=== PATIENT | male | born 1980 | race Caucasian/White ===

== ENCOUNTER 2019-01-25 15:27 | Emergency (ER) | payer BC ==
[2019-01-25 15:33] VITALS: BP 179/102; PULSE 85; RESP 18; TEMP 98.1
[2019-01-25] MEDS ORDERED: LIDOCAINE 1% INJ 10MG/ML (20 ML MDV) SQ ONE (15:50)
[2019-01-25] MEDS ORDERED: DIPH,PERTUS(ACELL)TETVAC-LF 0.5 ML VIAL IM ONE (15:50)
[2019-01-25] MEDS ORDERED: IBUPROFEN 600 MG TAB PO STA (15:50)
--- NOTE | 2019-01-25 16:48 | XR ---
EXAMINATION TYPE: XR hand complete RT DATE OF EXAM: 01/25/2019 COMPARISON: NONE HISTORY: 38-year-old female with pain. Puncture wound to the palm. TECHNIQUE: 3 views FINDINGS: No acute fracture, subluxation, or dislocation. No retained radiopaque foreign body seen. IMPRESSION: No acute osseous abnormality seen. No retained radiopaque foreign body material identified.
--- NOTE | 2019-01-25 17:22 | ED ---
Wound/Laceration HPI - General Chief Complaint: Wound/Laceration Stated Complaint: Hand puncture Time Seen by Provider: 01/25/19 15:39 Source: patient Mode of arrival: ambulatory Limitations: no limitations - History of Present Illness Initial Comments: Patient is a 38-year-old male presenting to emergency Department with complaints of puncture wounds to his right hand that happened prior to arrival. Patient states he was helping put some kiera down and he set his right hand down onto a floor board which had 2 screws sticking straight up. Patient did put all his weight down onto his right palm. Patient is able to move his right hand although painful. Bleeding is controlled at this time. Patient is unaware of his last tetanus vaccine. Patient denies any fever, chills. No other complaints at this time. Upon arrival, vital signs are stable, afebrile. - Related Data Allergies Allergy/AdvReac Type Severity Reaction Status Date / Time No Known Allergies Allergy Verified 01/25/19 15:33 Review of Systems ROS Statement: Those systems with pertinent positive or pertinent negative responses have been documented in the HPI. ROS Other: All systems not noted in ROS Statement are negative. Past Medical History Past Medical History: Hypertension History of Any Multi-Drug Resistant Organisms: None Reported Additional Past Surgical History / Comment(s): colon resection Past Psychological History: No Psychological Hx Reported Smoking Status: Never smoker Past Alcohol Use History: None Reported Past Drug Use History: None Reported General Exam - General Exam Comments Initial Comments: GENERAL: Well-appearing, well-nourished and in no acute distress. HEAD: Atraumatic, normocephalic. EYES: Pupils equal round and reactive to light, extraocular movements intact, sclera anicteric, conjunctiva are normal. ENT: TMs normal, nares patent, oropharynx clear without exudates. Moist mucous membranes. NECK: Normal range of motion, supple without lymphadenopathy or JVD. LUNGS: Breath sounds clear to auscultation bilaterally and equal. No wheezes rales or rhonchi. HEART: Regular rate and rhythm without murmurs, rubs or gallops. ABDOMEN: Soft, nontender, normoactive bowel sounds. No guarding, no rebound. No masses appreciated. : Deferred EXTREMITIES: Normal range of motion, no pitting or edema. No clubbing or cyanosis. Patient has full range of motion of his right hand and fingers. NEUROLOGICAL: Cranial nerves II through XII grossly intact. Normal speech, normal gait. PSYCH: Normal mood, normal affect. SKIN: Warm, Dry, normal turgor. There are 2 puncture wounds on the right palm, one just proximal to right thumb and the other puncture wound in the middle of the right palm. Bleeding is controlled at this time. Limitations: no limitations Course Vital Signs 01/25/19 15:29 Temperature 98.1 F Pulse Rate 85 Respiratory 18 Rate Blood Pressure 179/102 O2 Sat by Pulse 95 Oximetry Procedures - Laceration Laceration #1 Consent Obtained: verbal consent Indication: laceration Site: hand (Right hand, claire aspect, near base of thumb.) Size (cm): 0 (0.5) Description: irregular Depth: simple, single layer Anesthetic Used: lidocaine 1% Anesthesia Technique: local infiltration Amount (mls): 1 Pre-repair: irrigated extensively Type of Sutures: nylon Size of Sutures: 5-0 Number of Sutures: 1 Technique: simple, interrupted Patient Tolerated Procedure: well Laceration #2 Consent Obtained: verbal consent Indication: laceration Site: hand (Right hand, palmar aspect, middle of the palm) Size (cm): 1 Description: linear Depth: simple, single layer Anesthetic Used: lidocaine 1% Anesthesia Technique: local infiltration Amount (mls): 2 Pre-repair: irrigated extensively Type of Sutures: nylon Size of Sutures: 5-0 Number of Sutures: 3 Technique: simple, interrupted Patient Tolerated Procedure: well Medical Decision Making - Medical Decision Making Patient is a 38-year-old male presenting with 2 puncture wounds to his right palm prior to arrival. Patient excellently put all his weight down while getting up off the floor onto a piece of board that had 2 screws poking out. Patient is unaware of his last tetanus vaccine. On exam patient has a 0.5cm, small puncture wound to the base of the right thumb in the thenar eminence. Patient also has a second puncture wound, 1cm, more in the middle of the palm. X-ray of the right hand revealed no acute fractures dislocations. Patient has full range of motion of all 5 fingers although thumb range of motion is painful. Patient's hand was soaked in Betadine solution. Wounds were closed with 5-0 sutures. One suture at the base of the thumb, 3 sutures in the middle of the right palm. Bleeding is controlled at this time. Patient tolerated procedure well. Patient's tetanus vaccine was updated today. Sutures need to be removed in 10-12 days. Return parameters were discussed with the patient he verbalizes understanding. Patient stable for discharge at this time. Case discussed with Dr. Willams. Disposition Clinical Impression: Laceration of right hand Disposition: HOME SELF-CARE Condition: Stable Instructions (If sedation given, give patient instructions): Care For Your Stitches (ED) Additional Instructions: Please return to the Emergency Department if symptoms worsen or any other concerns. Sutures need to be removed in 10-12 days. Is patient prescribed a controlled substance at d/c from ED?: No Referrals: Jesus Thomas DO [Primary Care Provider] - 1-2 days
== END 2019-01-25 17:34 | disposition home or self-care (01) ==
LOC: EC 15:27
DX: S61.411A Laceration without foreign body of right hand, initial encounter (principal); Z23 Encounter for immunization; W45.0XXA Nail entering through skin, initial encounter; Y92.009 Unspecified place in unspecified non-institutional (private) residence as the place of occurrence of the external cause; Y93.89 Activity, other specified
CPT/HCPCS: 73130; 90715; 99283; 12001; 90471; J2001